=== PATIENT | female | born 1955 | race Caucasian/White ===

== ENCOUNTER 2016-12-03 11:03 | Outpatient (CLI) | payer BC ==
[2014-03-06 14:39] VITALS: O2SAT 94
== END 2016-12-03 11:04 | disposition home or self-care (01) ==
LOC: CONVCARE 11:03
PROVIDERS: ATTEND Orthopaedic Surgery
DX: G56.03 Carpal tunnel syndrome, bilateral upper limbs (principal)
CPT/HCPCS: 73140

== ENCOUNTER 2017-04-15 07:51 | Day surgery (SDC) | payer BC ==
[2017-04-15] MEDS ORDERED: PROPOFOL 10 MG/ML EMU IV ONE (08:33)
[2017-04-15] MEDS ORDERED: MIDAZOLAM 2 MG/2 ML SOL ONE (08:34)
[2017-04-15] MEDS ORDERED: FENTANYL 100MCG/2ML SOL ONE (08:34)
[2017-04-15] MEDS ORDERED: ONDANSETRON HCL 4 MG/2 ML SOL ONE (08:35)
[2017-04-15] MEDS ORDERED: CLINDAMYCIN 150 MG/ML SOL ONE (08:47)
[2017-04-15] MEDS ORDERED: METOCLOPRAMIDE HYDROCHLORIDE 5 MG/ML SOL ONE (09:02)
[2017-04-15] MEDS: LIDOCAINE HCL 1% MPF SOL ONE ×2 (09:42→09:43)
[2017-04-15] MEDS ORDERED: KETOROLAC TROMETHAMINE 30 MG/ML SOL ONE (09:56)
[2017-04-15 11:06] VITALS: BP 111/63; PULSE 45; RESP 18; TEMP 97.6; O2SAT 98
== END 2017-04-15 11:28 | disposition home or self-care (01) ==
LOC: SURG 07:51
PROVIDERS: ATTEND Orthopaedic Surgery
DX: G56.03 Carpal tunnel syndrome, bilateral upper limbs (principal)
CPT/HCPCS: 29848; J1885; J2001; J2250; J2405; J2704; J2765; J3010; J3490; A6402